=== PATIENT | male | born 1960 | race Caucasian/White ===

== ENCOUNTER 2017-02-27 13:33 | Emergency (ER) | payer MEDICAID ==
[~2017-02-27] VITALS: Ht 175.3 cm; Wt 68.0 kg
[~2017-02-27 13:33] MED LIST: ASPI-875 PO; CEFU500T5 PO; METO25TA2 PO; NAPR-1070 PO; TRAM-42 PO
--- OUTSIDE RECORDS SUMMARY | 2017-02-27 13:39 | XMS REPORT | Continuity of Care Document ---
Author Author [facility] Address Unknown Phone Unavailable Allergies Active Description Code Type Severity Reaction Onset Reported/Identified Relationship to Patient Clinical Status Yes No Known Drug Allergies [id number] Drug Allergy Unknown N/A 10/02/2012 Medications There is no data. Problems Date Dx Coded Attending Type Code Diagnosis Diagnosed By 08/03/2012 780.2 fainting ( syncope) 08/03/2012 786.50 CHEST PAIN 08/03/2012 HARRIS DO, ROXY K 780.2 fainting (syncope) 08/03/2012 HARRIS DO, ROXY K 786.50 CHEST PAIN 08/03/2012 ABDOUL BOSE MD 780.2 fainting (syncope) 08/03/2012 ABDOUL BOSE MD 786.50 chest pain or discomfort 08/03/2012 ABDOUL BOSE MD 780.2 fainting (syncope) 08/03/2012 ABDOUL BOSE MD 786.50 chest pain or discomfort 08/03/2012 MADL IC DESIGNER STANDARD CELLS, YAMILET L 780.2 fainting (syncope) 08/03/2012 MADL IC DESIGNER STANDARD CELLS, YAMILET L 786.50 chest pain or discomfort 08/03/2012 MADL IC DESIGNER STANDARD CELLS, YAMILET L 780.2 fainting (syncope) 08/03/2012 MADL IC DESIGNER STANDARD CELLS, YAMILET L 786.50 chest pain or discomfort 08/03/2012 MADL IC DESIGNER STANDARD CELLS, YAMILET L 780.2 fainting (syncope) 08/03/2012 MADL IC DESIGNER STANDARD CELLS, YAMILET L 786.50 chest pain or discomfort 08/03/2012 HARRIS DO, ROXY K 780.2 fainting (syncope) 08/03/2012 HARRIS DO, ROXY K 786.50 chest pain or discomfort 08/03/2012 HARRIS DO, ROXY K 780.2 fainting (syncope) 08/03/2012 HARRIS DO, ROXY K 786.50 chest pain or discomfort 08/03/2012 HARRIS DO, ROXY K 780.2 fainting (syncope) 08/03/2012 KIMBERLY KANG, ROXY K 786.50 chest pain or discomfort 08/03/2012 DOROTEO IC DESIGNER STANDARD CELLS, MEGAN R 780.2 fainting (syncope) 08/03/2012 DOROTEO IC DESIGNER STANDARD CELLS, MEGAN R 786.50 chest pain or discomfort 08/03/2012 MADL IC DESIGNER STANDARD CELLS, YAMILET L 780.2 fainting (syncope) 08/03/2012 MADL IC DESIGNER STANDARD CELLS, YAMILET L 786.50 chest pain or discomfort 09/27/2012 MADISON GUIDO MD Ot 305.1 TOBACCO USE DISORDER 09/27/2012 MADISON GUIDO MD Ot 780.2 SYNCOPE AND COLLAPSE 09/27/2012 MADISON GUIDO MD Ot 785.1 PALPITATIONS 09/27/2012 MADISON GUIDO MD Ot 786.59 CHEST PAIN NEC 09/27/2012 MADISON GUIDO MD Ot V17.49 FAMILY HISTORY OF OTHER CARDIOVASCULAR D 09/27/2012 MADISON GUIDO MD Ot V58.66 LONG-TERM (CURRENT) USE OF ASPIRIN 09/27/2012 MADISON GUIDO MD Ot V58.69 OTH MED,LT,CURRENT USE 10/02/2012 RAZIA RIZO DO Ot 444.21 UPPER EXTREMITY EMBOLISM 10/02/2012 RAZIA RIZO DO Ot 729.5 PAIN IN LIMB 10/02/2012 RAZIA RIZO DO Ot V45.89 POSTSURGICAL STATES NEC 12/06/2012 ABDOUL BOSE MD Ot 780.2 SYNCOPE AND COLLAPSE 12/06/2012 ABDOUL BOSE MD Ot 785.1 PALPITATIONS 12/06/2012 ABDOUL BOSE MD Ot 786.50 CHEST PAIN NOS 04/18/2013 ABDOUL BOSE MD 785.1 PALPITATIONS 04/18/2013 ABDOUL BOSE MD 788.20 URINARY RETENTION 04/18/2013 ABDOUL BOSE MD 785.1 PALPITATIONS 04/18/2013 ABDOUL BOSE MD 788.20 URINARY RETENTION 04/18/2013 JEREMI IC DESIGNER STANDARD CELLSYAMILET Alanis L 785.1 PALPITATIONS 04/18/2013 YAMILET BLOOD APRN L 788.20 URINARY RETENTION 04/18/2013 MADL IC DESIGNER STANDARD CELLS, YAMILET L 785.1 PALPITATIONS 04/18/2013 MADL IC DESIGNER STANDARD CELLS, YAMILET L 788.20 URINARY RETENTION 04/18/2013 MADL IC DESIGNER STANDARD CELLS, YAMILET L 785.1 PALPITATIONS 04/18/2013 MADL IC DESIGNER STANDARD CELLS, YAMILET L 788.20 URINARY RETENTION 04/18/2013 HARRIS DO, ROXY K 785.1 PALPITATIONS 04/18/2013 HARRIS DO, ROXY K 788.20 URINARY RETENTION 04/18/2013 HARRIS DO, ROXY K 785.1 PALPITATIONS 04/18/2013 HARRIS DO, ROXY K 788.20 URINARY RETENTION 04/18/2013 HARRIS DO, ROXY K 785.1 PALPITATIONS 04/18/2013 HARRIS DO, ROXY K 788.20 URINARY RETENTION 04/18/2013 DOROTEO IC DESIGNER STANDARD CELLS, MEGAN R 785.1 PALPITATIONS 04/18/2013 DOROTEO IC DESIGNER STANDARD CELLS, MEGAN R 788.20 URINARY RETENTION 04/18/2013 MADL IC DESIGNER STANDARD CELLS, YAMILET L 785.1 PALPITATIONS 04/18/2013 MADL IC DESIGNER STANDARD CELLS, YAMILET L 788.20 URINARY RETENTION 07/18/2013 MADL IC DESIGNER STANDARD CELLS, YAMILET L 585.9 CHRONIC KIDNEY DISEASE UNSPECIFIED 07/18/2013 MADL IC DESIGNER STANDARD CELLS, YAMILET L 782.0 DISTURBANCE OF SKIN SENSATION 07/18/2013 MADL IC DESIGNER STANDARD CELLS, YAMILET L 784.0 HEADACHE 07/18/2013 MADL IC DESIGNER STANDARD CELLS, YAMILET L 585.9 CHRONIC KIDNEY DISEASE UNSPECIFIED 07/18/2013 MADL IC DESIGNER STANDARD CELLS, YAMILET L 782.0 DISTURBANCE OF SKIN SENSATION 07/18/2013 MADL IC DESIGNER STANDARD CELLS, YAMILET L 784.0 HEADACHE 07/18/2013 MADL IC DESIGNER STANDARD CELLS, YAMILET L 585.9 CHRONIC KIDNEY DISEASE UNSPECIFIED 07/18/2013 MADL IC DESIGNER STANDARD CELLS, YAMILET L 782.0 DISTURBANCE OF SKIN SENSATION 07/18/2013 MADL IC DESIGNER STANDARD CELLS, YAMILET L 784.0 HEADACHE 07/18/2013 HARRIS DO, ROXY K 585.9 CHRONIC KIDNEY DISEASE UNSPECIFIED 07/18/2013 HARRIS DO, ROXY K 782.0 DISTURBANCE OF SKIN SENSATION 07/18/2013 HARRIS DO, ROXY K 784.0 HEADACHE 07/18/2013 HARRIS DO, ROXY K 585.9 CHRONIC KIDNEY DISEASE UNSPECIFIED 07/18/2013 HARRIS DO, ROXY K 782.0 DISTURBANCE OF SKIN SENSATION 07/18/2013 HARRIS DO, ROXY K 784.0 HEADACHE 07/18/2013 HARRIS DO, ROXY K 585.9 CHRONIC KIDNEY DISEASE UNSPECIFIED 07/18/2013 HARRIS DO, ROXY K 782.0 DISTURBANCE OF SKIN SENSATION 07/18/2013 HARRIS DO, ROXY K 784.0 HEADACHE 07/18/2013 DOROTEO IC DESIGNER STANDARD CELLS, MEGAN R 585.9 CHRONIC KIDNEY DISEASE UNSPECIFIED 07/18/2013 DOROTEO IC DESIGNER STANDARD CELLS, MEGAN R 782.0 DISTURBANCE OF SKIN SENSATION 07/18/2013 DOROTEO IC DESIGNER STANDARD CELLS, MEGAN R 784.0 HEADACHE 07/18/2013 MADL IC DESIGNER STANDARD CELLS, YAMILET L 585.9 CHRONIC KIDNEY DISEASE UNSPECIFIED 07/18/2013 MADL IC DESIGNER STANDARD CELLS, YAMILET L 782.0 DISTURBANCE OF SKIN SENSATION 07/18/2013 MADL IC DESIGNER STANDARD CELLS, YAMILET L 784.0 HEADACHE 07/30/2013 MADL IC DESIGNER STANDARD CELLS, YAMILET L 780.79 OTHER MALAISE AND FATIGUE 07/30/2013 MADL IC DESIGNER STANDARD CELLS, YAMILET L 780.79 OTHER MALAISE AND FATIGUE 07/30/2013 HARRIS DO, ROXY K 780.79 OTHER MALAISE AND FATIGUE 07/30/2013 HARRIS DO, ROXY K 780.79 OTHER MALAISE AND FATIGUE 07/30/2013 HARRIS DO, ROXY K 780.79 OTHER MALAISE AND FATIGUE 07/30/2013 DOROTEO IC DESIGNER STANDARD CELLS, MEGAN R 780.79 OTHER MALAISE AND FATIGUE 07/30/2013 MADL IC DESIGNER STANDARD CELLS, YAMILET L 780.79 OTHER MALAISE AND FATIGUE 08/28/2013 MARGARITA SIN FACC, LESA FACP CCDS Ot 305.1 TOBACCO USE DISORDER 08/28/2013 MARGARITA SIN FACC, LESA FACP CCDS Ot 785.1 PALPITATIONS 08/28/2013 MARGARITA SIN FACC, LESA FACP CCDS Ot V17.3 FAM HX-ISCHEM HEART DIS 08/28/2013 MARGARITA SIN FACC, LESA FACP CCDS Ot V58.69 OT MED,LT,CURRENT USE 08/29/2013 KIMBERLY KANG, ROXY K 266.2 VITAMIN B12 DEFICIENCY 08/29/2013 MEGAN SADLER APRN R 266.2 VITAMIN B12 DEFICIENCY 08/29/2013 YAMILET BLOOD APRN 266.2 VITAMIN B12 DEFICIENCY 09/01/2013 GILA BRODERICK MD Ot 276.50 VOLUME DEPLETION, UNSPECIFIED 09/01/2013 GILA BRODERICK MD Ot 458.9 HYPOTENSION NOS 09/01/2013 GILA BRODERICK MD Ot 586 RENAL FAILURE NOS 09/01/2013 GILA BRODERICK MD Ot 786.50 CHEST PAIN NOS 02/07/2014 MEGAN SADLER APRN 719.47 PAIN IN JOINT INVOLVING ANKLE AND FOOT 02/07/2014 YAMILET BLOOD APRN 719.47 PAIN IN JOINT INVOLVING ANKLE AND FOOT 02/01/2015 Ot 780.2 02/01/2015 Ot 785.1 02/01/2015 Ot 786.50 02/01/2015 TRISTA JEFFERSON MD Ot 789.09 02/01/2015 GILA BRODERICK MD Ot F17.210 NICOTINE DEPENDENCE, CIGARETTES, UNCOMPL 02/01/2015 GILA BRODERICK MD Ot S89.92XA UNSPECIFIED INJURY OF LEFT LOWER LEG, IN 02/01/2015 GILA BRODERICK MD Ot Y99.0 CIVILIAN ACTIVITY DONE FOR INCOME OR PAY 02/04/2015 Ot 780.2 02/04/2015 Ot 785.1 02/04/2015 Ot 786.50 02/04/2015 TRISTA JEFFERSON MD Ot 789.09 02/07/2015 Ot 780.2 02/07/2015 Ot 785.1 02/07/2015 Ot 786.50 02/07/2015 TRISTA JEFFERSON MD Ot 789.09 02/07/2015 Ot 780.2 02/07/2015 Ot 785.1 02/07/2015 Ot 786.50 02/07/2015 TRISTA JEFFERSON MD Ot 789.09 02/07/2015 Ot 780.2 02/07/2015 Ot 785.1 02/07/2015 Ot 786.50 02/07/2015 TRISTA JEFFERSON MD Ot 789.09 07/26/2015 BRIANNA SIN, PATRICIA Moeller Ot F17.210 NICOTINE DEPENDENCE, CIGARETTES, UNCOMPL 07/26/2015 BRIANNA SIN, PATRICIA A Ot R07.89 OTHER CHEST PAIN 07/26/2015 Ot 780.2 SYNCOPE AND COLLAPSE 07/26/2015 Ot 785.1 PALPITATIONS 07/26/2015 Ot 786.50 CHEST PAIN NOS 07/26/2015 RONNY SIN, TRISTA Moeller Ot 789.09 ABDOMINAL PAIN, OTHER SPECIFIED SITE 02/11/2016 PATRICIA REED MD Ot 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 CHONDROCOSTAL JUNCTION SYNDROME [TIETZE] 02/11/2016 PATRICIA REED MD Ot R07.89 OTHER CHEST PAIN 02/11/2016 PATRICIA REED MD Ot R07.9 CHEST PAIN, UNSPECIFIED 02/12/2016 PATRICIA REED MD Ot M94.0 CHONDROCOSTAL JUNCTION SYNDROME [TIETZE] 02/12/2016 PATRICIA REED MD A Ot R07.89 OTHER CHEST PAIN 02/12/2016 PATRICIA REED MD A Ot R07.9 CHEST PAIN, UNSPECIFIED 02/17/2016 PATRICIA REED MD A Ot M94.0 CHONDROCOSTAL JUNCTION SYNDROME [TIETZE] 02/17/2016 PATRICIA REED MD A Ot R07.89 OTHER CHEST PAIN 02/17/2016 PATRICIA REED MD A Ot R07.9 CHEST PAIN, UNSPECIFIED Procedures Code Description [place] [address] ROUTINE VENIPUNCTURE 09/05/2012 07636 EKG, TRACING 09/06/2012 97822 CBC 09/06/2012 25192 MAGNESIUM 09/06/2012 17080 CMP 09/06/2012 7306760 GFR CALC (RESULT ONLY) 09/06/2012 39059 TSH 09/06/2012 96842 EVENT MONITOR 09/07/2012 73052 ETHANOL SCREEN 09/07/2012 19712 HEART CATH 09/27/2012 CARDIOLOG Lesa Steward 09/27/2012 99712 EKG, TRACING (IN-HOUSE) 10/08/2012 72845 VIT B 12 07/19/2013 84418 TSH 07/19/2013 29233 LIPID PANEL 07/19/2013 07256 CBC 07/19/2013 41167 CMP 07/19/2013 13007 CRP 07/20/2013 72930 THERAPUTIC INJ SQ/IM 07/30/2013 J3420 B12 VITAMIN INJECTION 07/30/2013 73837 THERAPUTIC INJ SQ/IM 08/29/2013 J3420 B12 VITAMIN INJECTION 08/29/2013 97138 THERAPUTIC INJ SQ/IM 08/29/2013 J3420 B12 VITAMIN INJECTION 08/29/2013 55464 ROUTINE VENIPUNCTURE 02/07/2014 97534 XRAY ANKLE R COMP MIN, 3 VIEWS 02/07/2014 32308 CBC 02/07/2014 69848 URIC ACID 02/07/2014 20834 ROUTINE VENIPUNCTURE 02/22/2014 3451535 GFR CALC (RESULT ONLY) 02/22/2014 75483 CMP 02/22/2014 11804 TSH 02/22/2014 Results Test Result Range Complete blood count (CBC) with automated white blood cell (WBC) differential - 02/11/16 18:21 Blood leukocytes automated count (number/volume) 5.7 10*3/uL 4.3-11.0 Blood erythrocytes automated count (number/volume) 5.03 10*6/uL 4.35-5.85 Venous blood hemoglobin measurement (mass/volume) 14.2 g/dL 13.3-17.7 Blood hematocrit (volume fraction) 41 % 40-54 Automated erythrocyte mean corpuscular volume 82 [foz_us] 80-99 Automated erythrocyte mean corpuscular hemoglobin (mass per erythrocyte) 28 pg 25-34 Automated erythrocyte mean corpuscular hemoglobin concentration measurement ( mass/volume) 35 g/dL 32-36 Automated erythrocyte distribution width ratio 13.5 % 10.0-14.5 Automated blood platelet count (count/volume) 156 10*3/uL 130-400 Automated blood platelet mean volume measurement 11.2 [foz_us] 7.4-10.4 Automated blood neutrophils/100 leukocytes 58 % 42-75 Automated blood lymphocytes/100 leukocytes 32 % 12-44 Blood monocytes/100 leukocytes 8 % 0-12 Automated blood eosinophils/100 leukocytes 2 % 0-10 Automated blood basophils/100 leukocytes 1 % 0-10 Blood neutrophils automated count (number/volume) 3.3 10*3 1.8-7.8 Blood lymphocytes automated count (number/volume) 1.8 10*3 1.0-4.0 Blood monocytes automated count (number/volume) 0.4 10*3 0.0-1.0 Automated eosinophil count 0.1 10*3/uL 0.0-0.3 Automated blood basophil count (count/volume) 0.0 10*3/uL 0.0-0.1 PT panel in platelet poor plasma by coagulation assay - 02/11/16 18:21 Prothrombin time (PT) in platelet poor plasma by coagulation assay 13.1 s 12.2-14.7 INR in platelet poor plasma or blood by coagulation assay 1.0 0.8-1.4 Activated partial thromboplastin time (aPTT) in platelet poor plasma bycoagulation assay - 02/11/16 18:21 Activated partial thromboplastin time (aPTT) in platelet poor plasma bycoagulation assay 26 s 24-35 Comprehensive metabolic panel - 02/11/16 18:21 Serum or plasma sodium measurement (moles/volume) 139 mmol/L 135-145 Serum or plasma potassium measurement (moles/volume) 3.7 mmol/L 3.6-5.0 Serum or plasma chloride measurement (moles/volume) 106 mmol/L 98-107 Carbon dioxide 24 mmol/L 21-32 Serum or plasma anion gap determination (moles/volume) 9 mmol/L 5-14 Serum or plasma urea nitrogen measurement (mass/volume) 16 mg/dL 7-18 Serum or plasma creatinine measurement (mass/volume) 1.26 mg/dL 0.60-1.30 Serum or plasma urea nitrogen/creatinine mass ratio 13 NRG Serum or plasma creatinine measurement with calculation of estimated glomerular filtration rate 59 NRG Serum or plasma glucose measurement (mass/volume) 105 mg/dL 70-105 Serum or plasma calcium measurement (mass/volume) 9.4 mg/dL 8.5-10.1 Serum or plasma total bilirubin measurement (mass/volume) 0.6 mg/dL 0.1-1.0 Serum or plasma alkaline phosphatase measurement (enzymatic activity/volume) 80 U/L 40-136 Serum or plasma aspartate aminotransferase measurement (enzymatic activity/ volume) 23 U/L 5-34 Serum or plasma alanine aminotransferase measurement (enzymatic activity/volume ) 23 U/L 0-55 Serum or plasma protein measurement (mass/volume) 6.9 g/dL 6.4-8.2 Serum or plasma albumin measurement (mass/volume) 4.1 g/dL 3.2-4.5 Magnesium - 02/11/16 18:21 Magnesium 2.2 mg/dL 1.8-2.4 Serum or plasma troponin i.cardiac measurement (mass/volume) - 02/11/16 18:21 Serum or plasma troponin i.cardiac measurement (mass/volume) < ng/ mL <0.30 Serum or plasma ethanol measurement (mass/volume) - 02/11/16 18:21 Serum or plasma ethanol measurement (mass/volume) < mg/dL <10 Encounters ACCT No. Visit Date/Time Discharge Status Pt. Type Provider Facility Loc./Unit Complaint [id number] 02/22/2014 13:11:00 02/22/2014 23:59:59 CLS Outpatient YAMILET BLOOD APRN [id number] 02/07/2014 09:30:00 02/07/2014 23:59:59 CLS Outpatient MEGAN SADLER APRN [id number] 10/04/2013 13:19:00 10/04/2013 23:59:59 CLS Outpatient ROXY HARRIS DO [id number] 08/29/2013 08:59:00 08/29/2013 23:59:59 CLS Outpatient ROXY HARRIS DO [id number] 08/10/2013 08:39:00 08/10/2013 23:59:59 CLS Outpatient YAMILET BLOOD APRN [id number] 07/30/2013 08:15:00 07/30/2013 23:59:59 CLS Outpatient ROXY HARRIS DO [id number] 07/30/2013 08:15:00 07/30/2013 23:59:59 CLS Outpatient YAMILET BLOOD APRN [id number] 07/18/2013 09:16:00 07/18/2013 23:59:59 CLS Outpatient YAMILET BLOOD APRN [id number] 04/18/2013 13:44:00 04/18/2013 23:59:59 CLS Outpatient ABDOUL BOSE MD [id number] 04/18/2013 13:44:00 04/18/2013 23:59:59 CLS Outpatient ABDOUL BOSE MD [id number] 09/27/2012 09:35:00 09/27/2012 23:59:59 CLS Outpatient ROXY HARRIS DO [id number] 08/03/2012 15:52:00 Document Registration [id number] 02/11/2016 18:30:00 02/11/2016 19:59:00 DIS Emergency BRIANNA SIN, PATRICIA Moeller [facility] ER CHEST PAIN [id number] 07/26/2015 05:04:00 07/26/2015 06:39:00 DIS Emergency BRIANNA SIN, PATRICIA A [facility] ER [id number] 02/01/2015 07:16:00 02/01/2015 08:58:00 DIS Emergency MEGGAN SIN, GILA Joy [facility] ER [id number] 11/02/2013 08:29:00 11/02/2013 23:59:59 CLS Outpatient RONNY SIN, TRISTA Moeller [facility] RAD [id number] 09/01/2013 16:28:00 09/01/2013 18:36:00 DIS Emergency MEGGAN SIN, GILA Joy [facility] ER [id number] 08/28/2013 07:06:00 08/28/2013 10:55:00 DIS Outpatient MARGARITA SIN FACC, LESA FACP CCDS [facility] [id number] 10/02/2012 10:30:00 12/06/2012 00:01:00 DIS Outpatient JUICE SIN, ABDOUL Zhong [facility] CARD [id number] 10/02/2012 08:44:00 10/02/2012 10:20:00 DIS Emergency RAZIA RIZO DO [facility] ER [id number] 09/27/2012 12:06:00 09/27/2012 18:16:00 DIS Outpatient HAY SIN, MADISON Moeller [facility] [id number] 12/07/2012 10:00:00 Document Registration
[2017-02-27 13:56] LABS: BASOPHILS % (AUTO) 0 % (0-10); EOSINOPHILS % (AUTO) 0 % (0-10); HEMATOCRIT 43 % (40-54); HEMOGLOBIN 14.6 G/DL (13.3-17.7); LYMPHOCYTES # (AUTO) 1.5 X 10^3 (1.0-4.0); LYMPHOCYTES % (AUTO) 19 % (12-44); MEAN CORPUSCULAR HEMOGLOBIN 28 PG (25-34); MEAN CORPUSCULAR HGB CONC 34 G/DL (32-36); MEAN CORPUSCULAR VOLUME 83 FL (80-99); MONOCYTES # (AUTO) 0.7 X 10^3 (0.0-1.0); MONOCYTES % (AUTO) 9 % (0-12); NEUTROPHILS # (AUTO) 5.6 X 10^3 (1.8-7.8); NEUTROPHILS % (AUTO) 71 % (42-75); PLATELET COUNT 152 10^3/uL (130-400); WHITE BLOOD COUNT 7.8 10^3/uL (4.3-11.0)
[2017-02-27] MEDS ORDERED: OSLT75C PO (14:21)
--- NOTE | 2017-02-27 14:21 | ED Cough/URI ---
General Chief Complaint: Cough/Cold/Flu Symptoms Stated Complaint: KIDNEY PAIN,COUGH Source: patient Exam Limitations: no limitations History of Present Illness Time seen by provider: 14:19 Initial Comments To ER with nonproductive cough, "kidney pain" referring to pain across bilateral lower thoracic back. Body aches, chills. Family members ill with the same. He states they do not have the kidney pain that he has. Timing/Duration: constant Severity/Quality: dry cough Associated Symptoms: cough Allergies and Home Medications Allergies Coded Allergies: No Known Drug Allergies (Unverified , 10/02/12) Home Medications Naproxen Sodium 550 Mg Tablet, 550 MG PO BID PRN for PAIN, #10 Prescribed by: PATRICIA REED on 02/11/161952 Oseltamivir Phosphate 75 Mg Cap, 75 MG PO BID, #10 Prescribed by: MASTER WHITE on 02/27/17 1421 Constitutional: see HPI EENTM: see HPI Respiratory: no symptoms reported Cardiovascular: see HPI Genitourinary: no symptoms reported Musculoskeletal: no symptoms reported Skin: no symptoms reported Psychiatric/Neurological: No Symptoms Reported Past Stybttr-Fytxzy-Bwccni Hx Patient Social History Alcohol Use: Denies Use Recreational Drug Use: No Smoking Status: Current Everyday Smoker Type Used: Cigars Recent Foreign Travel: No Contact w/Someone Who Travel: No Recent Hopitalizations: No Seasonal Allergies Seasonal Allergies: No Surgeries History of Surgeries: Yes (implanted loop recorder) Surgeries: Appendectomy Respiratory History of Respiratory Disorde: No Cardiovascular History of Cardiac Disorders: Yes (HEART CATH) Cardiac Disorders: Hypertension, Irregular Heartbeat Neurological History of Neurological Disord: Yes Neurological Disorders: TIA Gastrointestinal History of Gastrointestinal Di: No Musculoskeletal History of Musculoskeletal Dis: No Endocrine History of Endocrine Disorders: No Cancer History of Cancer: No Psychosocial History of Psychiatric Problem: No Integumentary History of Skin or Integumenta: No Blood Transfusions History of Blood Disorders: No Physical Exam Vital Signs Vital Sign - Last 12Hours 02/27/17 13:35 Temp 98.8 Pulse 84 Resp 18 B/P (MAP) 114/78 (90) Pulse Ox 94 Capillary Refill : General Appearance: WD/WN, no apparent distress Eyes: Bilateral Eye Normal Inspection, Bilateral Eye PERRL, Bilateral Eye EOMI HEENT: PERRL/EOMI, normal ENT inspection Neck: non-tender, full range of motion Respiratory: no respiratory distress, no accessory muscle use Cardiovascular: regular rate, rhythm, no murmur Gastrointestinal: normal bowel sounds, non tender, soft Extremities: normal range of motion, non-tender Neurologic/Psychiatric: alert, normal mood/affect, oriented x 3 Skin: normal color, warm/dry Progress/Results/Core Measures Suspected Sepsis SIRS Temperature: Pulse: Respiratory Rate: Laboratory Tests 02/27/17 13:49: White Blood Count 7.8 Blood Pressure / Mean: Laboratory Tests 02/27/17 13:49: Creatinine 1.20, Platelet Count 152 Results/Orders Lab Results Laboratory Tests Test 02/27/17 13:49 02/27/17 14:40 Range/Units White Blood Count 7.8 4.3-11.0 10^3/uL Red Blood Count 5.20 4.35-5.85 10^6/uL Hemoglobin 14.6 13.3-17.7 G/DL Hematocrit 43 40-54 % Mean Corpuscular Volume 83 80-99 FL Mean Corpuscular Hemoglobin 28 25-34 PG Mean Corpuscular Hemoglobin Concent 34 32-36 G/DL Red Cell Distribution Width 13.0 10.0-14.5 % Platelet Count 152 130-400 10^3/uL Mean Platelet Volume 11.0 H 7.4-10.4 FL Neutrophils (%) (Auto) 71 42-75 % Lymphocytes (%) (Auto) 19 12-44 % Monocytes (%) (Auto) 9 0-12 % Eosinophils (%) (Auto) 0 0-10 % Basophils (%) (Auto) 0 0-10 % Neutrophils # (Auto) 5.6 1.8-7.8 X 10^3 Lymphocytes # (Auto) 1.5 1.0-4.0 X 10^3 Monocytes # (Auto) 0.7 0.0-1.0 X 10^3 Eosinophils # (Auto) 0.0 0.0-0.3 10^3/uL Basophils # (Auto) 0.0 0.0-0.1 10^3/uL Sodium Level 135 135-145 MMOL/L Potassium Level 3.9 3.6-5.0 MMOL/L Chloride Level 101 98-107 MMOL/L Carbon Dioxide Level 21 21-32 MMOL/L Anion Gap 13 5-14 MMOL/L Blood Urea Nitrogen 16 7-18 MG/DL Creatinine 1.20 0.60-1.30 MG/DL Estimat Glomerular Filtration Rate > 60 BUN/Creatinine Ratio 13 Glucose Level 92 70-105 MG/DL Calcium Level 9.6 8.5-10.1 MG/DL Urine Color YELLOW Urine Clarity CLEAR Urine pH 5 5-9 Urine Specific [place] 1.025 H 1.016-1.022 Urine Protein 1+ H NEGATIVE Urine Glucose (UA) NEGATIVE NEGATIVE Urine Ketones 1+ H NEGATIVE Urine Nitrite NEGATIVE NEGATIVE Urine Bilirubin 1+ H NEGATIVE Urine Urobilinogen 1 NORMAL MG/DL Urine Leukocyte Esterase 1+ H NEGATIVE Urine RBC (Auto) 2+ H NEGATIVE Urine RBC NONE /HPF Urine WBC 5-10 H /HPF Urine Squamous Epithelial Cells NONE /HPF Urine Crystals NONE /LPF Urine Bacteria MODERATE H /HPF Urine Casts NONE /LPF Urine Mucus LARGE H /LPF Urine Culture Indicated YES My Orders Orders - MASTER WHITE APRN Ua Culture If Indicated (02/27/17 13:40) Cbc With Automated Diff (02/27/17 13:40) Basic Metabolic Panel (02/27/17 13:40) Drug Screen Stat (Urine) (02/27/17 13:42) Urine Culture (02/27/17 14:40) Vital Signs/I&O Vital Sign - Last 12Hours 02/27/17 13:35 Temp 98.8 Pulse 84 Resp 18 B/P (MAP) 114/78 (90) Pulse Ox 94 Capillary Refill : Departure Communication (Admissions) Progress Notes I will use Tamiflu for Waylon because of his historical health troubles Impression Impression: Primary Impression: Influenza Additional Impression: Urinary tract infection Disposition: 01 HOME, SELF-CARE Condition: Stable Departure-Patient Inst. Decision time for Depature: 14:20 Referrals: RAZIA DE LA CRUZ MD (PCP/Family) Primary Care Physician Patient Instructions: Flu, Urinary Tract Infection, Adult (DC) Add. Discharge Instructions: Tylenol for body aches and fevers. Drink plenty of fluids. Return to ER for any concerns All discharge instructions reviewed with patient and/or family. Voiced understanding. Scripts Sulfamethoxazole/Trimethoprim (Bactrim Ds Tablet) 1 Each Tablet 1 EACH PO BID, #20 TAB Prov: MASTER WHITE APRN 02/27/17 Oseltamivir Phosphate (Tamiflu) 75 Mg Cap 75 MG PO BID, #10 CAP Prov: MASTER WHITE APRN 02/27/17 Work/School Note: Work Release Form Date Seen in the Emergency Department: Feb 27, 2017 Return to Work: Mar 03, 2017 MASTER WHITE APRN Feb 27, 2017 14:21
[2017-02-27 14:28] LABS: BUN/CREATININE RATIO 13; CALCIUM 9.6 MG/DL (8.5-10.1); CARBON DIOXIDE 21 MMOL/L (21-32); CHLORIDE 101 MMOL/L (98-107); GFR ESTIMATED > 60; GLUCOSE 92 MG/DL (70-105); POTASSIUM 3.9 MMOL/L (3.6-5.0); SODIUM 135 MMOL/L (135-145)
[2017-02-27 14:49] LABS: BILIRUBIN,URINE 1+ (NEGATIVE); CLARITY,URINE CLEAR; COLOR,URINE YELLOW; GLUCOSE, URINE (UA) NEGATIVE (NEGATIVE); KETONES,URINE 1+ (NEGATIVE); LEUKOCYTE ESTERASE ,URINE 1+ (NEGATIVE); NITRITE,URINE NEGATIVE (NEGATIVE); PH,URINE 5 (5-9); PROTEIN,URINE 1+ (NEGATIVE); UROBILINOGEN,URINE 1 MG/DL (NORMAL)
[2017-02-27 14:57] LABS: BACTERIA,URINE MODERATE /HPF
[2017-02-27 15:00] LABS: AMPHETAMINE SCREEN, URINE NEGATIVE (NEGATIVE); BARBITURATE SCREEN URINE NEGATIVE (NEGATIVE); BENZODIAZEPINES SCREEN URINE NEGATIVE (NEGATIVE); CANNABINOID SCREEN, URINE NEGATIVE (NEGATIVE); COCAINE SCREEN URINE NEGATIVE (NEGATIVE); METHADONE STAT NEGATIVE (NEGATIVE); METHAMPHETAMINE SCREEN URINE S NEGATIVE (NEGATIVE); OPIATE SCREEN URINE NEGATIVE (NEGATIVE); OXYCODONE STAT NEGATIVE (NEGATIVE); PROPOXYPHENE STAT NEGATIVE (NEGATIVE); TRICYCLIC ANTIDEPRESSANTS SCRE NEGATIVE (NEGATIVE)
[2017-02-27] MEDS ORDERED: SULF1TAB35 PO (15:00)
[2017-02-27 15:04] VITALS: BP 114/78
== END 2017-02-27 15:04 | disposition home or self-care (01) ==
LOC: EDUNIT# 13:33 → ER 13:34
DX: J11.1 Influenza due to unidentified influenza virus with other respiratory manifestations (principal); N39.0 Urinary tract infection, site not specified; I10 Essential (primary) hypertension; F17.290 Nicotine dependence, other tobacco product, uncomplicated; Z90.49 Acquired absence of other specified parts of digestive tract; Z86.73 Personal history of transient ischemic attack (TIA), and cerebral infarction without residual deficits
CPT/HCPCS: 36415; 80048; 80306; 81000; 85025; 87088; 99282

== ENCOUNTER 2018-10-04 08:18 | Outpatient (CLI) | payer BC ==
[~2018-10-04] VITALS: Ht 172.7 cm; Wt 79.4 kg
[~2018-10-04 08:18] MED LIST changes: +OSLT75C PO; +SULF1TAB35 PO
[2018-10-04 08:36] VITALS: BP 136/87
[2018-10-04] MEDS ORDERED: ASPI-586 PO (08:43)
== END 2018-10-04 08:55 | disposition home or self-care (01) ==
LOC: PREOP 08:18
PROVIDERS: ATTEND Surgery
DX: Z01.818 Encounter for other preprocedural examination (principal)
CPT/HCPCS: 87081

== ENCOUNTER 2018-10-11 07:35 | Day surgery (SDC) | payer BC, MEDICAID ==
[2018-10-11] VITALS (12 sets, daily range): BP systolic 97–128; BP diastolic 64–91
[~2018-10-11] VITALS: Ht 172.7 cm; Wt 79.4 kg
[~2018-10-11 07:35] MED LIST changes: +ASPI-586 PO
[2018-10-11] MEDS ORDERED: ceFAZolin INJECTION 1,000 MG in WATER (STERILE) FOR INJECTION 10 ML IV ONE (07:45)
--- NOTE | 2018-10-11 07:52 | Progress Note-Pre Operative ---
Pre-Operative Progress Note H&P Reviewed The H&P was reviewed, patient examined and no changes noted. Date Seen by Provider: Oct 11, 2018 Time Seen by Provider: 07:51 Date H&P Reviewed: Oct 11, 2018 Time H&P Reviewed: 07:51 Pre-Operative Diagnosis: left inguinal hernia TONIA SUAZO DO Oct 11, 2018 07:52
[2018-10-11] MEDS: LACTATED RINGERS 1,000 ML IV PRN ×2 (08:30→09:30)
[2018-10-11] MEDS ORDERED: proPOfol 200 MG/20 ML (DIPRIVAN) VIAL IV ONE (08:42)
[2018-10-11] MEDS ORDERED: ROCURONIUM 10 MG/ML 5 ML SYRINGE IV ONE (08:42)
[2018-10-11] MEDS ORDERED: SEVOFLURANE (ULTANE) 15 ML INHAL SOLN ONE ×2 (08:42→09:53)
[2018-10-11] MEDS ORDERED: LIDOCAINE PF 2% 5 ML (XYLOCAINE) VIAL ONE (08:42)
[2018-10-11] MEDS ORDERED: MIDAZOLAM 2 MG/2 ML (VERSED) VIAL ONE (08:42)
[2018-10-11] MEDS ORDERED: fentaNYL INJECTION 100 MCG/2 ML AMP ONE (08:43)
[2018-10-11] MEDS ORDERED: ONDANSETRON 4 MG/2 ML (SDV) Z0FRAN ONE (09:28)
[2018-10-11] MEDS ORDERED: DEXAMETHASONE 10 MG/ML (DECADRON) 1 ML VIAL ONE (09:28)
--- NOTE | 2018-10-11 10:01 | Progress Note-Post Operative ---
Post-Operative Progess Note Surgeon (s)/Intern (s) Surgeon TONIA SUAZO DO Intern: Dr. Collins Pre-Operative Diagnosis left inguinal hernia Post-Operative Diagnosis incarcerated left inguinal hernia Procedure & Operative Findings Date of Procedure 10/11/18 Procedure Performed/Findings open left inguinal hernia Anesthesia Type general Estimated Blood Loss Estimated blood loss (mL): min Specimens/Packing Specimens Removed hernia sac TONIA SUAZO DO Oct 11, 2018 10:01
[2018-10-11] MEDS ORDERED: DOCU-143 PO (10:02)
[2018-10-11] MEDS ORDERED: ACHD5005 PO (10:02)
--- NOTE | 2018-10-11 10:03 | Discharge Inst-Simple/Standard ---
Discharge Inst-Standard Discharge Medications New, Converted or Re-Newed RX: RX on Chart Patient Instructions/Follow Up Plan of Care/Instructions/FU: 2-3 weeks Jatinder Activity as Tolerated: No Discharge Diet: Regular Diet Other Inst to Patient Follow up Appt: Make appointment for 2-3 weeks. Instructions: No lifting greater than 10 pounds. No strenuous activity. May shower in 24 hours, no tub bath or soaking. Use incentive spirometer at home as directed. No Smoking Skin/Wound Care: You have special glue over incisions it will fall off on its own. Symptoms to Report: Appetite Changes, Extremity Discoloration, Numbness/Tingling, Swelling Increased, Bleeding Excessive, Eyesight Changes, Pain Increased, Urine Color Change, Constipation(Persistent), Fever over 101 degree F, Pain/Pressure in c hest, Urinating Difficulty, Cough Up/Vomit Blood, Heart Beat Irreg/Pounding, Pain/Pressure in jaw, Vaginal Bleeding Increase, Cramps in feet or legs, Lightheadedness, Pain/Pressure in shoulder, Diarrhea(Persistent), Memory Changes Suddenly, Questions/Concerns, Weight gain consecutive days, Dizziness/Fainting, Nausea/Vomiting, Shortness of Breath, Weight gain over 2 pounds If questions or concerns contact your physician Or seek help at emergency department. TONIA SUAZO DO Oct 11, 2018 10:03
[2018-10-11] MEDS ORDERED: BUP/EPI 0.5% 1:200,000 (MARCAINE) 10ML VIAL IJ ONE (10:24)
[2018-10-11] MEDS ORDERED: ONDANSETRON 4 MG/2 ML (SDV) Z0FRAN IVP PRN (10:30)
[2018-10-11] MEDS ORDERED: morphine INJ 10 MG/ML 1ML (SYR OR VIAL) IVP ONE (10:30)
[2018-10-11] MEDS ORDERED: MEPERIDINE (DEMEROL) INJ 50 MG/ML IVP ONE (10:30)
[2018-10-11] MEDS ORDERED: HYDROcodone/APAP 5 MG/325 MG (LORTAB) TAB PO PRN (11:30)
[2018-10-11] MEDS ORDERED: HYDROcodone/APAP 5 MG/325 MG (LORTAB) TAB ONE (11:31)
--- NOTE | 2018-10-11 11:40 | NUR ---
C/O LOW PELVIC/GROIN PAIN RATED 6. SKIN AFFIX INTACT TO SURGICAL INCISION, ICE PACK ON. TAKING PO FLUIDS AND CRACKERS WITHOUT PROBLEM. LORTAB 5/325 MG, ONE TAB, GIVEN PO.
--- NOTE | 2018-10-11 12:30 | NUR ---
HAS BEEN RESTING QUIETLY IN BED WITH EYES CLOSED. AWAKE NOW, RATES SURGICAL SITE PAIN 3. VOIDED 450 CC CLEAR YELLOW URINE. STATES HE IS READY FOR DISMISSAL. NO CHANGE IN SITE ASSESSMENT.
--- NOTE | 2018-10-11 12:44 | OPERATIVE REPORT ---
DATE OF SERVICE: 10/11/2018 PREOPERATIVE DIAGNOSIS: Left inguinal hernia. POSTOPERATIVE DIAGNOSIS: Incarcerated left inguinal hernia. SURGEON: Tonia Tobias DO ASSISTANT ATTORNEY GENERAL: Agustin Collins DO, assisted in retraction, dissection and closure. ANESTHESIA: General. ESTIMATED BLOOD LOSS: Minimal. COMPLICATIONS: None. INDICATIONS: The patient is a 58-year-old male with left inguinal hernia. He understands risks and benefits of procedure and wished to proceed with procedure. Consent was signed in the chart. DESCRIPTION OF PROCEDURE: The patient was taken to the operating suite and was prepped and draped in sterile fashion. Timeout was performed. Local anesthetic was infiltrated in the left groin. A 15 blade scalpel was used to make incision and cautery was used to dissect down to the external oblique. The external oblique was then opened down to the external ring. The spermatic cord was then dissected around some laxity in the floor of the abdomen and also an indirect inguinal hernia present. The hernia sac was then dissected off of the cord. This was then opened. Bowel was incarcerated through this, which had adhesions into the hernia sac, which were taken down and was able to be reduced. The hernia defect was then closed with a 2-0 Vicryl and this was reduced. A ProGrip mesh was then cut to size and secured to Trey's ligament and incorporated around the internal ring after the floor laxity was sutured closed with 2-0 Vicryl. The mesh was then placed under the external oblique incorporating around the spermatic cord. The abdomen was then irrigated and suctioned. A couple of sutures were used to tack the mesh in place as well. The external oblique was then closed recreating the internal ring. Subcutaneous tissues were then reapproximated using 3-0 Vicryl. Skin was then closed using 4-0 Monocryl in a running subcuticular fashion. The area was washed and dried and Skin Affix was placed over the incision. The patient tolerated procedure well without any complications and taken to recovery room in stable condition. Job ID: [id number] DocumentID: [id number] Dictated Date: 10/11/2018 10:14:31 Iron Worker Apprentice Date: 10/11/2018 12:44:25 Dictated By: TONIA TOBIAS DO
--- NOTE | 2018-10-11 14:38 | Anesthesia-General Post-Op ---
General Patient Condition Mental Status/LOC: Same as Preop Cardiovascular: Satisfactory Nausea/Vomiting: Absent Respiratory: Satisfactory Pain: Controlled Complications: Absent Post Op Complications Complications None Follow Up Care/Instructions Patient Instructions None needed. Anesthesia/Patient Condition Patient Condition Patient is doing well, no complaints, stable vital signs, no apparent adverse anesthesia problems. No complications reported per nursing. YENNI PIERCE CRNA Oct 11, 2018 14:38
== END 2018-10-11 13:00 | disposition home or self-care (01) ==
LOC: SDC 07:35
PROVIDERS: ATTEND Surgery
DX: K40.30 Unilateral inguinal hernia, with obstruction, without gangrene, not specified as recurrent (principal); I10 Essential (primary) hypertension; I25.10 Atherosclerotic heart disease of native coronary artery without angina pectoris; I77.9 Disorder of arteries and arterioles, unspecified; F17.210 Nicotine dependence, cigarettes, uncomplicated; R55 Syncope and collapse; Z95.818 Presence of other cardiac implants and grafts; Z86.73 Personal history of transient ischemic attack (TIA), and cerebral infarction without residual deficits; Z98.61 Coronary angioplasty status; Z79.82 Long term (current) use of aspirin; Z82.49 Family history of ischemic heart disease and other diseases of the circulatory system; Z84.1 Family history of disorders of kidney and ureter
CPT/HCPCS: 94664

== ENCOUNTER → 2019-12-10 | Outpatient (CLI) | payer BC ==
[~2019-12-10] MED LIST changes: +ACHD5005 PO; +ASPI-999 PO; +DOCU-143 PO; +HYDR-4226 PO
--- NOTE | 2019-12-10 14:35 | Diagnostic Imaging Report ---
PROCEDURE: CT abdomen and pelvis without contrast. TECHNIQUE: Multiple contiguous axial images were obtained through the abdomen and pelvis without the use of intravenous contrast. Auto Exposure Controls were utilized during the CT exam to meet ALARA standards for radiation dose reduction. INDICATION: Gross hematuria. Comparison made with prior examination from 11/02/2013. FINDINGS: The heart size is normal. There is minimal scarring in the left lung base. The liver is normal in size without focal lesions. Gallbladder is contracted. There is no biliary ductal dilatation. Spleen is normal. Pancreas and adrenal glands are unremarkable. There is no evidence of nephrolithiasis or obstructive uropathy. There is no evidence of renal mass. Aorta is nonaneurysmal. Bowel gas pattern is nonspecific. There is no free air. There is no ascites. No focal inflammatory changes. There is no CT evidence of appendicitis. There is mild diverticular disease without evidence of diverticulitis. There are mild degenerative changes in the spine. IMPRESSION: No evidence of renal mass, stone or obstructive uropathy. Mild diverticular disease without evidence of diverticulitis. No other acute abnormality in the abdomen or pelvis. Dictated by: Dictated on workstation # [id number]
== END ==
LOC: RAD 13:45
PROVIDERS: ATTEND Urology
DX: K57.90 Diverticulosis of intestine, part unspecified, without perforation or abscess without bleeding (principal); R31.0 Gross hematuria
CPT/HCPCS: 74176

== ENCOUNTER 2019-12-11 05:32 | Outpatient (RCR) | payer BC ==
[~2019-12-11] VITALS: Ht 172 cm; Wt 72.7 kg
[~2019-12-11 05:32] MED LIST changes: -ASPI-999 PO; -HYDR-4226 PO
[2019-12-11] MEDS ORDERED: ASPI-999 PO (11:20)
--- NOTE | 2019-12-12 07:06 | Progress Note-Pre Operative ---
Pre-Operative Progress Note H&P Reviewed The H&P was reviewed, patient examined and no changes noted. Date Seen by Provider: Dec 12, 2019 Time Seen by Provider: 07:06 Date H&P Reviewed: Dec 12, 2019 Time H&P Reviewed: 07:06 Pre-Operative Diagnosis: GROSS HEMATURIA TRISTA JEFFERSON MD Dec 12, 2019 07:06
[2019-12-12] MEDS ORDERED: HYDR-4226 PO (11:26)
== END 2019-12-11 11:33 | disposition home or self-care (01) ==
LOC: PREOP 05:32
PROVIDERS: ATTEND Surgery
DX: Z01.812 Encounter for preprocedural laboratory examination (principal); K40.91 Unilateral inguinal hernia, without obstruction or gangrene, recurrent; Z20.828 Contact with and (suspected) exposure to other viral communicable diseases
CPT/HCPCS: 87635

== ENCOUNTER 2019-12-12 07:51 | Day surgery (SDC) | payer BC ==
[2019-12-12] VITALS (11 sets, daily range): BP systolic 100–134; BP diastolic 57–85
[~2019-12-12] VITALS: Ht 175.2 cm; Wt 68.2 kg
[~2019-12-12 07:51] MED LIST changes: +ASPI-999 PO
[2019-12-12] MEDS ORDERED: BUP/EPI 0.5% 1:200,000 (SENSORCAINE) 30 ML VIAL ONE (08:10)
--- NOTE | 2019-12-12 08:25 | Progress Note-Pre Operative ---
Pre-Operative Progress Note H&P Reviewed The H&P was reviewed, patient examined and no changes noted. Time Seen by Provider: 08:16 Date H&P Reviewed: Dec 12, 2019 Time H&P Reviewed: 08:17 Pre-Operative Diagnosis: Recurrent LIH Addendum Physician Addendum Addendum Pt was set-up by my partner to have surgery. I went over the pt the details of robotic surgery and why it was the better procedure to do now that the open procedure had unfortunately failed. I did explain to him that even robotically there was still a chance of failure, because nothing is 100%. We are going to put the mesh on the inside which should give a better chance of closing the defect and is anatomically a better spot for mesh. All questions answered to his satisfaction. Risks and complications discussed; including but not limited to pain, bleeding, infection, scar, damage to bowel and need for further procedure. Progress 08:22 NERI FLOWER DO Dec 12, 2019 08:25
[2019-12-12] MEDS: LACTATED RINGERS 1,000 ML IV PRN ×2 (08:37→10:35)
[2019-12-12 08:43] LABS: HEMATOCRIT 42 % (40-54); LYMPHOCYTES # (AUTO) 1.3 10^3/uL (1.0-4.0)
[2019-12-12 08:45] LABS: BASOPHILS % (AUTO) 1 % (0-10); EOSINOPHILS # (AUTO) 0.2 10^3/uL (0.0-0.3); EOSINOPHILS % (AUTO) 4 % (0-10); LYMPHOCYTES % (AUTO) 32 % (12-44); MEAN CORPUSCULAR HEMOGLOBIN 29 pg (25-34); MEAN CORPUSCULAR HGB CONC 34 g/dL (32-36); MEAN CORPUSCULAR VOLUME 85 fL (80-99); MEAN PLATELET VOLUME 11.5 fL (9.0-12.2); MONOCYTES # (AUTO) 0.2 10^3/uL (0.0-1.0); MONOCYTES % (AUTO) 6 % (0-12); NEUTROPHILS # (AUTO) 2.3 10^3/uL (1.8-7.8); NEUTROPHILS % (AUTO) 57 % (42-75); PLATELET COUNT 125 10^3/uL (130-400)
[2019-12-12] MEDS ORDERED: ceFAZolin INJECTION 1,000 MG in WATER (STERILE) FOR INJECTION 10 ML IV ONE (08:45)
[2019-12-12] MEDS ORDERED: fentaNYL INJECTION 100 MCG/2 ML AMP ONE (09:15)
--- NOTE | 2019-12-12 09:18 | Progress Note-Post Operative ---
Post-Operative Progess Note Surgeon (s)/Build Master (s) Surgeon TRISTA JEFFERSON MD Build Master: NONE Pre-Operative Diagnosis GROSS HEMATURIA Post-Operative Diagnosis SAME Procedure & Operative Findings Date of Procedure 12/12/19 Procedure Performed/Findings CYSTOSCOPY Anesthesia Type GENERAL Estimated Blood Loss Estimated blood loss (mL): NONE Specimens/Packing Specimens Removed NONE Packing: NONE TRISTA JEFFERSON MD Dec 12, 2019 09:18
[2019-12-12] MEDS ORDERED: MIDAZOLAM 2 MG/2 ML (VERSED) VIAL ONE (09:20)
[2019-12-12] MEDS ORDERED: NEOSTIGMINE 3 MG/3 ML VIAL ONE (10:08)
[2019-12-12] MEDS ORDERED: ONDANSETRON 4 MG/2 ML (SDV) Z0FRAN ONE (10:08)
[2019-12-12] MEDS ORDERED: SEVOFLURANE (ULTANE) 15 ML INHAL SOLN ONE (10:08)
[2019-12-12] MEDS ORDERED: GLYCOPYRROLATE 0.2 MG/ML (ROBINUL) 2 ML VIAL ONE (10:08)
[2019-12-12] MEDS ORDERED: ROCURONIUM 10 MG/ML 5 ML SYRINGE IV ONE ×2 (10:08→11:11)
[2019-12-12] MEDS ORDERED: proPOfol 200 MG/20 ML (DIPRIVAN) VIAL IV ONE (10:08)
[2019-12-12] MEDS ORDERED: LIDOCAINE PF 2% 5 ML (XYLOCAINE) VIAL ONE (10:08)
[2019-12-12] MEDS ORDERED: HYDROmorphone 2 MG/ML VIAL (DILAUDID) ONE (11:12)
--- NOTE | 2019-12-12 11:25 | Progress Note-Post Operative ---
Post-Operative Progess Note Surgeon (s)/Relationship Assoc (s) Surgeon NERI FLOWER DO Relationship Assoc: Jatinder Pre-Operative Diagnosis Recurrent LIH Post-Operative Diagnosis Left Recurrent Indirect inguinal hernia incarcerated and Incarcerated Direct inguinal hernia Procedure & Operative Findings Date of Procedure 12/12/19 Procedure Performed/Findings The patient is a 59-year-old male, who unfortunately has had a previous hernia attempt on his left inguinal hernia and now has a recurrence. He needed to get this fixed robotically, so we are in a different plane. Site was marked and agreed at time out. FINDINGS: The patient had a recurrent left incarcerated inguinal hernia which was indirect as well as an incarcerated direct hernia. Pictures were taken. This was repaired. He also had adhesions seen. PROCEDURE NOTE: After informed consent was obtained, the patient was brought to the operating room and placed on the operating table in a supine position. He was sterilely prepped and draped in a normal fashion. Local lidocaine was used to infiltrate the skin above the umbilicus. I made an incision with #11 blade, carried down to the skin into subcutaneous tissue and then deepened down the subcutaneous tissue with Bovie electrocautery down to the fascia. Fascia was incised with Bovie electrocautery and bluntly entered the abdomen, swept a finger around, placed 0 Vicryl [id number] suture and placed limited trocar port under direct visualization. Created pneumoperitoneum, able to visualize the hernia and took a picture of this and then placed two 8 mm ports about 10 cm on either side of the midline port using a local lidocaine, 11 blade for stab incision and then advanced the robotic port under direct visualization. Once this was in, I then placed the patient in Trendelenburg and then placed the working instruments, the fenestrated bipolar and the scissors. I first had to take down adhesions blocking my view of the inguinal canal. Carefully taken down with sharp dissection and blunt dissection. Looked on the right side and did not see a hernia. Next I came across the peritoneum approximately 8 cm away from the hernia defect, going across laterally starting from midline right at median umbilical ligament. We came across laterally all the way out about 16 cm, possibly more and then carefully dissected the visceral peritoneum away and down and then in the midline, went through the parietal side and dissected down to the pubic tubercle, dissecting this down carefully pushing the peritoneum away, we were able to then visualize the pubic tubercle and Trey's ligament. We went 2 cm posterior and at this point, we then had a critical view of the dissection, able to dissect 2 cm across the midline to the right side, 2 cm posterior to the Trey's ligament, able to then parietalize the vas deferens and spermatic vessels right at the groove between Trey's and iliac vein and able to dissect, make sure there was no peritoneum between those two, able to see the direct hernia space, took a picture of this, looked at the femoral space. There was a hernia and carefully took out incarcerated fat and could visualize the direct hernia space. Next I looked on the cord and cord structures. There was a large recurrent incarcerated indirect hernia. I then reduced this and could see the inguinal canal through the indirect space. Next I carried the posterior lateral dissection all the way out and then placed a 10.8 x 16 regular Bard 3DMax mesh. It laid in nicely, covered both hernia defects and all of the area and it was above the peritoneum, sutured it at the pubic tubercle with a 3-0 Vicryl suture and tied this off. I then placed a suture laterally to hold it in place. Again, this appeared to lay in very nicely. I then brought down the pneumoperitoneum to about 8 mmHg and then started closing the peritoneum. Started laterally and used a 2-0 V-lock barbed suture to start a running stitch to close the peritoneum. This was closed nicely, took a picture of the closure at this point, then removed both needles had switched to a suture interstate bus driver from the scissors. The patient was then placed back supine, removed all ports under direct visualization, allowed pneumoperitoneum to escape and then closed the supraumbilical incision, closing the fascia with 0 Vicryl suture previously placed. Copiously irrigated all incisions and then closed the two small 8 mm incisions with two interrupted 4-0 undyed Monocryl subcuticular stitches and closed the supraumbilical incision with three interrupted undyed Monocryl subcuticular stitch. Area was cleaned and dried. Dermabond was placed. The patient tolerated the procedure. The sponge, instrument and needle counts were correct at the end of the case. Dr. Tobias assisted me in this case helping to make incisions, close incisions, identify anatomy and passed instrument and passed me the needles. Anesthesia Type GET Estimated Blood Loss Estimated blood loss (mL): less than 10ml Specimens/Packing Specimens Removed NONE NERI FLOWER DO Dec 12, 2019 11:25
[2019-12-12] MEDS ORDERED: HYDR-4226 PO (11:26)
--- NOTE | 2019-12-12 11:28 | Discharge Inst-Surgical ---
Discharge Inst-Surgical Depart Medication/Instructions New, Converted or Re-Newed RX: RX Given to Pt/Family Patient Instructions Follow up Appt: Make appointment for 1 week. [phone] Instructions: No lifting greater than 20 pounds. No strenuous activity. May shower in 24 hours, no tub bath or soaking. Use incentive spirometer at home as directed. No Smoking Skin/Wound Care: May remove bandages in am. You need to leave the Dermabond on incision it will fall off on it's own. Symptoms to Report: Appetite Changes, Extremity Discoloration, Numbness/Tingling, Swelling Increased, Bleeding Excessive, Eyesight Changes, Pain Increased, Urine Color Change, Constipation(Persistent), Fever over 101 degree F, Pain/Pressure in chest, Urinating Difficulty, Cough Up/Vomit Blood, Heart Beat Irreg/Pounding, Pain/Pressure in jaw, Cramps in feet or legs, Lightheadedness, Pain/Pressure in shoulder, Diarrhea(Persistent), Memory Changes Suddenly, Questions/Concerns, Weight gain consecutive days, Dizziness/Fainting, Nausea/Vomiting, Shortness of Breath, Weight gain over 2 pounds If questions or concerns contact your physician Or seek help at emergency department. Activity Activity as Tolerated: Yes Activity Instructions: Avoid Stress to Incision Driving Instructions: No Driving/Refer to Dr. Del Angel Discharge Diet: No Restrictions Diet After 24 Hours: Clear Liquid if Nauseous If Any Problems/Questions/Issu: Contact Your Physician, Go to Emergency Room Skin/Wound Care Infection Signs and Symptoms: Increased Redness, Foul Odor of Wound, Increased Drainage, Skin Itchy or Has a Rash, Increased Swelling, Temperature Above 101 F Wound Care Comment: heating pad to shoulder or neck tonight for pain Bathing Instructions: Shower Stitches/Simi/Dermabond Dis: Dermabond Ice Pack: Ice On and Off Site (as needed for pain at incision sites) NERI FLOWER DO Dec 12, 2019 11:27
[2019-12-12] MEDS ORDERED: PHENYLEPHRINE 100 MCG/ML 10 ML (ANESTHESIA) SYR ONE (11:38)
[2019-12-12] MEDS ORDERED: ONDANSETRON 4 MG/2 ML (SDV) Z0FRAN IVP PRN (11:45)
[2019-12-12] MEDS ORDERED: HYDROmorphone 2 MG/ML VIAL (DILAUDID) IV ONE (11:45)
[2019-12-12] MEDS ORDERED: morphine INJ 10 MG/ML 1ML (SYR OR VIAL) IVP ONE (11:45)
--- NOTE | 2019-12-12 12:04 | OPERATIVE REPORT ---
DATE OF SERVICE: 12/12/2019 PREOPERATIVE DIAGNOSIS: Gross hematuria. POSTOPERATIVE DIAGNOSIS: Gross hematuria. OPERATION PERFORMED: Flexible cystoscopy. SURGEON: Michele Jefferson MD ANESTHESIA: General. COMPLICATIONS: None. DESCRIPTION OF PROCEDURE: Under satisfactory general anesthesia had before Dr. Collins perform his hernia repair, the genitalia were prepped and draped in the usual sterile fashion. Flexible cystoscope was introduced under vision. The anterior urethra was normal. The prostate was not big, somewhat hyperemic. The bladder was inspected carefully. There was no foreign body, bladder tumor or stone visualized. No cystitis, carcinoma in situ. Ureteric orifices normal in shape, size and configuration with clear efflux. Cystoscopy was confirmed in an antegrade fashion and the cystoscope was removed. The patient tolerated the procedure and anesthesia well and Dr. Collins proceeded with his surgery that he will dictate. Job ID: [id number] DocumentID: [id number] Dictated Date: 12/12/2019 10:14:07 Nuclear Medical Tech Date: 12/12/2019 12:03:00 Dictated By: MICHELE JEFFERSON MD
[2019-12-12] MEDS ORDERED: HYDROcodone/APAP 5 MG/325 MG (LORTAB) TAB ONE (13:03)
[2019-12-12] MEDS ORDERED: HYDROcodone/APAP 5 MG/325 MG (LORTAB) TAB PO ONE (13:15)
--- NOTE | 2019-12-12 13:53 | Anesthesia-General Post-Op ---
General Patient Condition Mental Status/LOC: Same as Preop Cardiovascular: Satisfactory Nausea/Vomiting: Absent Respiratory: Satisfactory Pain: Controlled Complications: Absent Post Op Complications Complications None Follow Up Care/Instructions Patient Instructions None needed. Anesthesia/Patient Condition Patient Condition Patient is doing well, no complaints, stable vital signs, no apparent adverse anesthesia problems. ALIREZA BARONE DO Dec 12, 2019 13:53
== END 2019-12-12 14:00 | disposition home or self-care (01) ==
LOC: SDC 07:51
PROVIDERS: ATTEND Surgery
DX: K40.30 Unilateral inguinal hernia, with obstruction, without gangrene, not specified as recurrent (principal); R31.0 Gross hematuria; I10 Essential (primary) hypertension; I25.10 Atherosclerotic heart disease of native coronary artery without angina pectoris; F17.210 Nicotine dependence, cigarettes, uncomplicated; Z79.899 Other long term (current) drug therapy; Z79.82 Long term (current) use of aspirin; Z86.73 Personal history of transient ischemic attack (TIA), and cerebral infarction without residual deficits
CPT/HCPCS: 49507; 52000; 85025; 87081; C1781; 36415

== ENCOUNTER → 2021-02-24 | Outpatient (REF) ==
[~2021-02-24] MED LIST changes: +HYDR-4226 PO; -SULF1TAB35 PO; +SULF1TAB38 PO
--- NOTE | 2021-02-24 10:34 | Diagnostic Imaging Report ---
EXAMINATION: Right knee at 1013 AM INDICATION: Knee pain Three views were obtained. There are no prior studies available for comparison. COMPARISON: None. There is no fracture, dislocation or acute bony abnormality evident. The knee joint is fairly well maintained. The soft tissues are unremarkable. IMPRESSION: There is no evidence for an acute bony abnormality. Dictated by: Dictated on workstation # [id number]
== END ==
LOC: OCC 09:52
PROVIDERS: ATTEND Family Medicine
DX: M25.561 Pain in right knee (principal)
CPT/HCPCS: 73562

== ENCOUNTER → 2021-05-13 | Outpatient (CLI) | payer OTHER ==
--- NOTE | 2021-05-13 11:05 | Diagnostic Imaging Report ---
INDICATION: Internal derangement of the knee. Pain after slipping 2 months ago. EXAMINATION: Right knee MRI without contrast on 05/13/2021. FINDINGS: The extensor mechanism is intact. The ACL and PCL are intact. The MCL is intact. The lateral collateral ligamentous complex is within normal limits. There is focal nonspecific T2 hyperintensity within the anterior aspect of the medial tibial plateau which is most likely due to bone contusion. The remaining osseous structures are unremarkable. There is a horizontal oblique tear through the posterior horn and body of the medial meniscus with some extension into the anterior horn also noted. Myxoid degeneration is noted within the posterior horn of the lateral meniscus with no discrete tear identified. There is moderate loss of cartilage in the medial joint compartment. Minimal thinning of the cartilage in the lateral joint space is noted. There is mild heterogeneity and loss of cartilage over the patella. There is a small joint effusion with a small Martinez's cyst. IMPRESSION: 1. Tear diffusely throughout the medial meniscus as described with the lateral meniscus intact. 2. Tricompartmental degenerative disease. 3. The ligaments and tendons are intact. 4. Nonspecific edema in the anterior medial tibial plateau, most likely contusion. Dictated by: Dictated on workstation # [id number]
== END ==
LOC: RAD 08:00
PROVIDERS: ATTEND Family Medicine
DX: S83.281A Other tear of lateral meniscus, current injury, right knee, initial encounter (principal); S83.241A Other tear of medial meniscus, current injury, right knee, initial encounter; M17.11 Unilateral primary osteoarthritis, right knee; W01.0XXA Fall on same level from slipping, tripping and stumbling without subsequent striking against object, initial encounter
CPT/HCPCS: 73721